=== PATIENT | male | born 1980 | race African-American/Black ===

== ENCOUNTER 2017-10-22 18:53 | Emergency (ER) | payer OTHER ==
[~2017-10-22] VITALS: Ht 193 cm; Wt 89.8 kg
[~2017-10-22 18:53] MED LIST: ASPIRIN EC81 M1 PO; LORATIDINE 10 M10 M1 PO; MUCINEX TA600 MG/TA2 PO; NOHOMEMEDICATIONS; PHENERGAN 25 MG25 M1 PO; PRILOSEC40 MG PO; TRAMADOL 50 MG50 MG PO; UNICOMPLEX M TA1 TA1 PO
[2017-10-22 19:49] LABS: HEMATOCRIT 37.6 % (42.0-52.0); HEMOGLOBIN 12.7 gm/dL (14.0-18.0); MCH 31.9 pg (26.0-34.0); MCHC 33.7 g/dL (28.0-37.0); MCV 94.5 fL (80.0-100.0); RBC 3.98 mil/uL (4.50-6.00); RDW 14.1 % (10.5-14.5); WBC 5.9 thou/uL (4.0-11.0)
[2017-10-22 19:50] LABS: URINE BILIRUBIN NEGATIVE (Negative); URINE BLOOD NEGATIVE (Negative); URINE CLARITY CLEAR; URINE COLOR YELLOW; URINE GLUCOSE-RANDOM* NEGATIVE (Negative); URINE KETONES TRACE (Negative); URINE LEUKOCYTES-REFLEX NEGATIVE (Negative); URINE NITRITE-REFLEX NEGATIVE (Negative); URINE PROTEIN (DIPSTICK) NEGATIVE (Negative); URINE SPECIFIC GRAVITY 1.025 (1.005-1.035); URINE UROBILINOGEN 0.2 E.U./dl (0.2-1.0)
[2017-10-22 19:59] LABS: CALCIUM 9.2 mg/dL (8.5-10.1); CREATININE 0.9 mg/dL (0.7-1.3); POTASSIUM 3.5 mmol/L (3.5-5.1)
[2017-10-22 20:05] LABS: ALBUMIN 3.9 g/dL (3.4-5.0); TOTAL BILIRUBIN 0.2 mg/dL (<0.1-1.0); TOTAL PROTEIN 7.1 g/dL (6.4-8.2)
== END 2017-10-22 21:21 | disposition home or self-care (01) ==
LOC: ER 18:53
PROVIDERS: Physician Assistant
DX: K62.5 Hemorrhage of anus and rectum (principal)